=== PATIENT | male | born 1950 | race Caucasian/White ===

== ENCOUNTER 2021-02-08 08:28 | Outpatient (CLI) | payer MEDICARE ==
[2021-02-08 08:57] LABS: ALANINE AMINOTRANSFERASE 30 U/L (12-78); ANION GAP 4 mmol/L (5-15); CALCIUM 8.8 mg/dL (8.5-10.1); CHLORIDE 109 mmol/L (98-107); CHOLESTEROL, TOTAL 152 mg/dL (140-239); CREATININE 0.96 mg/dL (0.7-1.3); TRIGLYCERIDES 60 mg/dL (50-200); VLDL CHOLESTEROL 12 mg/dL (0-25)
[2021-02-08 08:59] LABS: ALKALINE PHOSPHATASE 36 U/L (45-117); BILIRUBIN,TOTAL 0.6 mg/dL (0.2-1.0); CHOL/HDL RATIO 2.8; HDL CHOL % 36 % (26-37); HDL CHOLESTEROL (DIRECT) 54 mg/dL (40-60); LDL CHOLESTEROL,CALCULATED 86 mg/dL (54-169); LDL/HDL RATIO 1.6 (0.5-3.0); TOTAL PROTEIN 7.4 g/dL (6.4-8.2)
== END 2021-02-08 23:59 | disposition home or self-care (01) ==
LOC: LAB 08:28
PROVIDERS: ATTEND Internal Medicine Cardiovascular Disease
DX: I10 Essential (primary) hypertension (principal); E78.2 Mixed hyperlipidemia; D69.6 Thrombocytopenia, unspecified
CPT/HCPCS: 36415; 80053; 80061